=== PATIENT | female | born 1985 | race American Indian/Alaskan Native ===

== ENCOUNTER 2020-01-08 17:43 | Emergency (ER) | payer SELFPAY ==
[2020-01-08 18:17] VITALS: BP 94/55
[2020-01-08] MEDS ORDERED: DIPHtheria,PERTUSSIS(ACELL),TETANUS VACCINE/PF 0.5 ML VIAL IM ONE ×2 (18:37→20:52)
--- NOTE | 2020-01-08 18:37 | Emergency Department Report ---
ED Head Trauma HPI - General Chief complaint: Fall Stated complaint: FALL Time Seen by Provider: 01/08/20 18:25 Source: patient, EMS Mode of arrival: Stretcher Limitations: No Limitations - History of Present Illness Initial comments: CC: "I fell." HPI: This is a 34-year-old female with history of schizophrenia and polysubstance abuse who presents from [facility] after a fall and possible syncope. She fell backwards after feeling dizzy upon standing. She has hematoma small scalp laceration at the left parietal region. Unclear if she passed out. She has not been eating or drinking. She has headache. She denies chest pain palpitations or shortness of breath. MD Complaint: head injury, fall -: This afternoon Mechanism of Injury: mechanical fall Location: parietal Loss of Consciousness: unsure Previous Trauma to this Area: No Place: other ([facility]) Severity: moderate Consistency: constant Other Injuries: laceration, other (Scalp hematoma) Associated Symptoms: other (Dizziness) - Related Data Allergies/Adverse reactions: Allergies Allergy/AdvReac Type Severity Reaction Status Date / Time ketorolac [From Toradol] Allergy Seizure Verified 01/08/20 17:52 tramadol Allergy Seizure Verified 01/08/20 17:52 ED Review of Systems ROS: Stated complaint: FALL Other details as noted in HPI Comment: All other systems reviewed and negative Constitutional: denies: fever, malaise Respiratory: denies: cough, shortness of breath Cardiovascular: denies: chest pain Gastrointestinal: denies: abdominal pain, nausea, vomiting Neurological: headache ED Past Medical Hx - Past Medical History Previous Medical History?: Yes Hx Seizures: Yes Additional medical history: SCHZIOPHRENIA - Surgical History Past Surgical History?: No - Social History Smoking Status: Current Every Day Smoker Substance Use Type: Cocaine, Heroin, Marijuana, Prescribed, Methamphetamines ED Physical Exam - General Limitations: No Limitations General appearance: alert, in no apparent distress - Head Head exam: Present: normocephalic, other (4 cm hematoma with superficial 1 cm scalp laceration skin edges well approximated) - Eye Eye exam: Present: normal appearance. Absent: scleral icterus, conjunctival injection - ENT ENT exam: Present: mucous membranes moist - Neck Neck exam: Present: normal inspection, full ROM. Absent: tenderness, meningis mus - Respiratory Respiratory exam: Present: normal lung sounds bilaterally. Absent: respiratory distress, wheezes, rales, rhonchi - Cardiovascular Cardiovascular Exam: Present: regular rate, normal rhythm, normal heart sounds. Absent: systolic murmur, diastolic murmur, rubs, gallop - GI/Abdominal GI/Abdominal exam: Present: soft, normal bowel sounds. Absent: distended, tenderness, guarding, rebound - Extremities Exam Extremities exam: Present: normal inspection - Neurological Exam Neurological exam: Present: alert, oriented X3 - Psychiatric Psychiatric exam: Present: normal affect, normal mood - Skin Skin exam: Present: warm, dry, intact, normal color. Absent: rash ED Course Vital Signs 01/08/20 01/08/20 01/08/20 18:15 18:17 18:31 Temperature 98.2 F Pulse Rate 67 67 66 Respiratory 17 17 18 Rate Blood Pressure 94/55 94/55 Blood Pressure 94/55 [Right] O2 Sat by Pulse 98 98 100 Oximetry - Radiology Data Radiology results: report reviewed According to radiology impression: No intracranial abnormality, left parietal scalp hematoma seen - Medical Decision Making 1. Vasovagal syncope due to orthostasis likely due to poor p.o. intake recently as well as new psychotropic medication. No symptoms or risk factors to suggest arrhythmia, structural heart disease or pulmonary embolism. PERC negative. Patient was observed on [facility] without notable cardiac events. 2. Head trauma with possible LOC: CT head without acute traumatic injury findings; no skull fracture, no intracranial hemorrhage 3. Superficial scalp laceration does not require suture or staple repair. Skin edges are well approximated without bleeding. Tdap booster provided. Patient did have headache upon arrival as result of trauma. She declined Tylenol or ibuprofen which were offered. Critical care attestation.: If time is entered above; I have spent that time in minutes in the direct care of this critically ill patient, excluding procedure time. ED Disposition Clinical Impression: Minor head injury, Near syncope, Left parietal scalp hematoma, Superficial laceration of scalp Disposition: [id number] ANOTHER TYPE HLTHCARE Is pt being admited?: No Does the pt Need Aspirin: No Condition: Stable Instructions: Minor Head Injury (ED), Near Syncope (ED) Referrals: KIANA LI MD [Staff Physician] - as needed
--- NOTE | 2020-01-08 20:14 | Cat Scan Report ---
CT HEAD WITHOUT CONTRAST INDICATION / CLINICAL INFORMATION: Syncopal episode resulting in patient fall with head injury. TECHNIQUE: All CT scans at this location are performed using CT dose reduction for ALARA by means of automated e xposure control. COMPARISON: None available. FINDINGS: HEMORRHAGE: No evidence of intracranial hemorrhage or extra-axial fluid collection. EXTRA-AXIAL SPACES: Cortical sulci, sylvian fissures and basilar cisterns have an unremarkable appear ance. VENTRICULAR SYSTEM: The ventricular system is of normal size and configuration. CEREBRAL PARENCHYMA: No areas of abnormal brain parenchymal attenuation are identified. There is no i ndication of recent infarction. MIDLINE SHIFT OR HERNIATION: There is no mass effect. CEREBELLUM / BRAINSTEM: Brainstem and cerebellum have an unremarkable appearance. MIDLINE STRUCTURES:No abnormalities of the pituitary gland or pineal region are identified. INTRACRANIAL VESSELS:No abnormalities are identified on this noncontrast head CT. ORBITS: visualized portions of the orbits have an unremarkable appearance. SOFT TISSUES of HEAD: A moderate left parietal scalp hematoma is demonstrated. CALVARIUM: Evaluation of bone windows reveals no abnormalities. PARANASAL SINUSES / MASTOID AIR CELLS: Paranasal sinuses are free from inflammatory mucosal disease. Mastoid air cells are normally pneumatized. ADDITIONAL FINDINGS: None. IMPRESSION: 1. Moderate left parietal scalp hematoma. 2. No intracranial abnormality. Signer Name: Tunde Loya MD Signed: 01/08/2020 8:10 PM Workstation Name: [id number]
== END 2020-01-08 21:30 | disposition other institution (70) ==
LOC: ED 17:43
DX: S01.01XA Laceration without foreign body of scalp, initial encounter (principal); S09.90XA Unspecified injury of head, initial encounter; R55 Syncope and collapse; F25.0 Schizoaffective disorder, bipolar type; F17.200 Nicotine dependence, unspecified, uncomplicated; F12.90 Cannabis use, unspecified, uncomplicated; F15.90 Other stimulant use, unspecified, uncomplicated; F14.90 Cocaine use, unspecified, uncomplicated; F11.90 Opioid use, unspecified, uncomplicated; Z88.8 Allergy status to other drugs, medicaments and biological substances; Z86.69 Personal history of other diseases of the nervous system and sense organs; W18.30XA Fall on same level, unspecified, initial encounter; Y93.89 Activity, other specified; Y92.89 Other specified places as the place of occurrence of the external cause; Y99.8 Other external cause status
CPT/HCPCS: 70450; 90471; 90715